=== PATIENT | female | born 1975 | race Caucasian/White ===

== ENCOUNTER 2023-11-07 18:32 | Emergency (ER) | payer SELFPAY ==
[~2023-11-07] VITALS: Ht 165.1 cm; Wt 75.0 kg
[2023-11-07 19:06] VITALS: O2SAT 97
[2023-11-07 20:55] LABS: POTASSIUM 3.8 mEq/L (3.5-5.1)
[2023-11-07 20:56] LABS: CALCIUM 9.5 mg/dL (8.7-10.4); DIFFERENTIAL COMMENT 1; EOSINOPHILS % 1.1 % (0.0-5.0); HEMATOCRIT. 40.1 % (36.0-48.0); LYMPHOCYTES % 20.4 % (20.0-50.0); MEAN CORPUSCULAR HEMOGLOBIN 29.2 pg (28.0-32.0); MEAN CORPUSCULAR HGB CONC 32.5 g/dL (31.0-37.0); MEAN CORPUSCULAR VOLUME 89.7 fL (81.0-99.0); MONOCYTES % 6.7 % (2.0-8.0); NEUTROPHILS % 70.8 % (40.0-76.0); RED BLOOD CELL COUNT 4.47 mill/uL (4.2-5.4); RED CELL DISTRIBUTION WIDTH 13.7 % (11.6-14.6)
[2023-11-07 21:01] LABS: CREATININE 1.1 mg/dL (0.6-1.0)
[2023-11-07 21:58] LABS: PLATELET 235 x1000/uL (130-400)
[2023-11-08] MEDS: LIDOCAINE HCL/EPINEPHRINE 1%-EPI 1:100,000 20 ML VIAL INFIL ONE (01:15)
[2023-11-08] MEDS: BACITRACIN ZINC OINT UDPKT TOP ONE (01:15)
[2023-11-08] MEDS: ACETAMINOPHEN 325MG TABLET PO ONE (01:55)
[2023-11-08] MEDS ORDERED: IBUP-2028 MT (02:23)
[2023-11-08] MEDS ORDERED: SULF1TAB48 MT (02:23)
[2023-11-08] MEDS ORDERED: CEPH500T MT (02:23)
[2023-11-08 02:40] VITALS: BP 126/77; PULSE 72; RESP 14; TEMP 37.00296; O2SAT 100
== END 2023-11-08 02:52 | disposition home or self-care (01) ==
LOC: ER 18:32
DX: L02.11 Cutaneous abscess of neck (principal); L72.3 Sebaceous cyst
CPT/HCPCS: 80048; 85025; 36415; 99283; 10060; Z7610 ×4

== ENCOUNTER 2023-11-09 19:09 | Emergency (ER) | payer SELFPAY ==
[~2023-11-09] VITALS: Ht 157.5 cm; Wt 69.0 kg
[~2023-11-09 19:09] MED LIST: CEPH500T MT; IBUP-2028 MT; SULF1TAB48 MT
[2023-11-09 20:03] VITALS: O2SAT 100
[2023-11-09 21:00] VITALS: BP 139/86; PULSE 79; RESP 17; TEMP 36.66960; O2SAT 100
== END 2023-11-09 22:57 | disposition home or self-care (01) ==
LOC: ER 19:09
DX: L02.11 Cutaneous abscess of neck (principal); Z48.00 Encounter for change or removal of nonsurgical wound dressing
CPT/HCPCS: 99281; Z7610